=== PATIENT | female | born 1960 | race Caucasian/White ===

== ENCOUNTER → 2016-12-03 10:33 | Outpatient (CLI) | payer MEDICARE, BC ==
[2012-05-13 07:31] VITALS: BMI 38.3
== END | disposition home or self-care (01) ==
LOC: D.CT 11-27 09:00
DX: R91.1 Solitary pulmonary nodule (principal)

== ENCOUNTER → 2017-03-12 08:08 | Outpatient (CLI) | payer MEDICARE, BC ==
[2012-05-13 07:31] VITALS: BMI 38.3
== END | disposition home or self-care (01) ==
LOC: D.CT 08:08
DX: R91.1 Solitary pulmonary nodule (principal)

== ENCOUNTER → 2017-12-19 10:09 | Outpatient (CLI) | payer MEDICARE, BC ==
[2012-05-13 07:31] VITALS: BMI 38.3
== END | disposition home or self-care (01) ==
LOC: D.CT 10:09
DX: R93.8 Abnormal findings on diagnostic imaging of other specified body structures (principal)

== ENCOUNTER 2018-02-26 05:56 | Day surgery (SDC) | payer MEDICARE, BC ==
[~2018-02-26] VITALS: Ht 162.6 cm; Wt 90.7 kg
--- NOTE | ~2018-02-26 | OP ---
PATIENT NAME: VAL MCINTYRE MEDICAL RECORD: [id number] :58 LOCATION:D.OPS ADMISSION DATE: SURGEON: ROMEL WOMACK MD DATE OF OPERATION: 02/26/2018 SURGEON: Romel Womack MD ANESTHESIA: MAC by John Aguilar CRNA PREOPERATIVE DIAGNOSES: Urinary frequency, urethral stricture. PROCEDURE: Cystoscopy and urethral stricture dilation to 30-Mexican. FINDINGS: Urethral stricture, single ureteral orifices bilaterally. No bladder tumors. Diffuse bladder inflammation. ESTIMATED BLOOD LOSS: None. CLINICAL HISTORY: This is a 57-year-old female, who complains of severe urinary frequency with urgency. She also has hesitancy in getting a flow started as well as a very slow urinary flow. Her symptoms are suggestive of a urethral stricture and therefore she comes today to have a cystoscopy and urethral stricture dilation. She has previously had a hysterectomy and she is 3, para 3, AB 0. She is allergic to numerous medications including SULFA, AUGMENTIN, ABILIFY, FENTANYL, NEURONTIN, MORPHINE, OXYCODONE, AND TIZANIDINE. We gave her Ancef commercial drone pilot to the OR. DESCRIPTION OF PROCEDURE: The patient was given IV sedation. She was placed into dorsal lithotomy position and prepped and draped. Cystoscopy was performed with a 21-Mexican cystoscope, which went in with some difficulty due to the urethral stricture. Passage of the scope dilated the urethra to 21-Mexican. Findings in the bladder was outlined above. The bladder was then emptied through the scope sheath and then urethral sounds were used in successively larger sizes to finally dilate the urethra to 30-Mexican. She does have diffuse bladder inflammation and she may have interstitial cystitis. If the urethral stricture dilation does not help her symptoms, then the next step would be intravesical Rimso installation. TRANSINT:[id number] Voice Confirmation ID: [id number] DOCUMENT ID: [id number] ROMEL WOMACK MD at 1322 CC: [id number] DICTATION DATE: 02/26/18 0853 BOTTOM LINER: 02/26/18 1041 [facility] 02/26/18 [place] [address]
[~2018-02-26 05:56] MED LIST: DESERYL100 MG PO; GLUCOPHAGE500 MG PO; GLUCOTROL 5 MG T5 MG PO; K-TAB10 MEQ PO; KLONOPIN0.5 MG PO; PRAVACHOL40 MG PO; PROTONIX40 MG PO; PROZAC20 MG PO; VRAYLAR3 MG PO
[2018-02-26 06:41] VITALS: BP 97/54; Ht 162.6 cm; Wt 90.7 kg
[2018-02-26 06:49] LABS: HEMATOCRIT 31.8 % (36.0-48.0); HEMOGLOBIN 9.6 g/dL (12-16); MCH 24.1 pg (26.0-34.0); MCHC 30.2 g/dL (31.0-37.0); MCV 79.7 fL (80.0-100.0); MEAN PLATELET VOLUME 8.9 fL (7.4-10.4); RBC 3.99 10x6/uL (4.00-5.40); RDW 15.6 % (11.5-14.5); WBC 7.5 10x3/uL (4.8-10.8)
[2018-02-26 07:06] LABS: CALC OSMOLALITY 282 mosm/kg (275-300); CALCIUM 8.4 mg/dL (8.5-10.1); CARBON DIOXIDE 28.6 mmol/L (21.0-32.0); CHLORIDE - SERUM 105 mmol/L (98-107); CREATININE - SERUM 0.8 mg/dL (0.6-1.3); GLUCOSE 112 mg/dL (74-106); POTASSIUM - SERUM 3.9 mmol/L (3.5-5.1); SODIUM 142 mmol/L (136-145); UREA NITROGEN 9 mg/dL (7-18); eGFR NON AFRICAN AMERICAN 78 mL/min (90-120)
== END 2018-02-26 09:35 | disposition home or self-care (01) ==
LOC: D.OPS 05:56 → D.PAN 08:15 → D.OPS 08:15
PROVIDERS: Anesthesiology
DX: R35.0 Frequency of micturition (principal); N35.9 Urethral stricture, unspecified; Z01.812 Encounter for preprocedural laboratory examination; Z88.1 Allergy status to other antibiotic agents; Z88.5 Allergy status to narcotic agent; Z88.2 Allergy status to sulfonamides

== ENCOUNTER → 2018-11-30 15:09 | Outpatient (CLI) | payer MEDICARE, BC ==
[2018-02-26 06:41] VITALS: BMI 34.4
== END | disposition home or self-care (01) ==
LOC: D.HCCARDIO 15:00
DX: I20.9 Angina pectoris, unspecified (principal)

== ENCOUNTER → 2019-04-23 11:09 | Outpatient (CLI) | payer MEDICARE, BC ==
[2018-02-26 06:41] VITALS: BMI 34.4
--- NOTE | 2019-04-27 14:37 | EC ---
PATIENT:VAL MCINTYRE DATE OF SERVICE: 04/23/19 SEX: F MEDICAL RECORD: [id number] DATE OF : 58 [facility] AGE OF PATIENT: 58 ADMISSION DATE: 04/23/19 REFERRING PHYSICIAN: INTERPRETING PHYSICIAN: ANABELLA MCGEE MD ECHOCARDIOGRAM REPORT ECHO CHARGES 4 ECHO COMPLETE Date: 04/23/19 CLINICAL DIAGNOSIS: MR/BAPTISTE/TACHYCARDIA H/O HTN ECHOCARDIOGRAPHIC MEASUREMENTS (adult normal given) AC root (d.<3.7cm) 3.7 cm LV Septum d (<1.2 cm> 0.9 cm Valve Excursion 2.3 cm LV Septum (systole) 1.4 cm Left Atria (s.<4.0cm> 4.7 cm LVPW d(<1.2cm) 1.1 cm RV (d.<2.3cm) 2.6 cm LVPW (sytole) 1.8 cm LV diastole(<5.6CM) 6.0 cm MV E-F(>70mm/sec) cm LV systole 3.5 cm LVOT Diameter 1.9 cm MV exc.(>10mm) cm Est.ejection fraction (50-75%) % DOPPLER: LVIT cm/sec A 128 cm/sec E 100 cm/sec LA cm/sec RVSP 35.0 mmHg LVOT 116 cm/sec AOP1/2T m/s Asc. Ao 183 cm/sec RVOT 71.0 cm/sec RA cm/sec PA 112 cm/sec AV Gradient Peak 13.4 mmHg AV Mean 7.0 mmHg AV Area 1.7 cm MV Gradient Peak 7.7 mmHg MV Mean 3.0 mmHg MV Area cm COMMENTS: OP - HC Machine Inker: 1 BRENDA BRISTOL E Learning Manager: 1 Dr. Mcgee TAPE# PACS Pericardial Effusion N DATE OF SERVICE: FINDINGS: 1. Left ventricular chamber size is mildly dilated. Left ventricular systolic function is preserved at 60%. 2. Left atrium is dilated at 4.7 cm. Right atrium and right ventricular chamber sizes are as well mildly dilated. 3. Valvular structures have normal structure and motion. 4. Doppler interrogation reveals trace mitral regurgitation, trace tricuspid regurgitation, no other valvular insufficiency or stenosis. Pulmonary systolic ECHOCARDIOGRAM REPORT [id number] VAL MCINTYRE pressure is estimated 35 mmHg. 5. No evidence of pericardial effusion or left ventricular thrombus. TRANSINT:[id number] Voice Confirmation ID: [id number] DOCUMENT ID: [id number] ANABELLA MCGEE MD at 1437 CC: [id number] DICTATION DATE: 04/26/19 1125 RECREATION FACILITY ATTENDANT: 04/26/19 1156 DEP CLI 04/23/19 [place] [id number] [place] [id number]
== END | disposition home or self-care (01) ==
LOC: D.HCCARDIO 11:09
PROVIDERS: ATTEND Internal Medicine Interventional Cardiology
DX: I34.0 Nonrheumatic mitral (valve) insufficiency (principal)

== ENCOUNTER → 2020-03-16 17:00 | Outpatient (CLI) | payer MEDICARE, BC ==
[2018-02-26 06:41] VITALS: BMI 34.4
== END | disposition home or self-care (01) ==
LOC: D.LABREF 17:00
PROVIDERS: ATTEND Orthopaedic Surgery
DX: M17.11 Unilateral primary osteoarthritis, right knee (principal)

== ENCOUNTER 2020-03-21 15:16 | Inpatient (IN) | payer MEDICARE, BC ==
[~2020-03-21] VITALS: Ht 165.1 cm; Wt 106.6 kg
[2020-04-18] MEDS ORDERED: ULTRAM50 MG PO (13:11)
[2020-04-18] MEDS ORDERED: BACLOFEN10 MG IV (13:13)
[2020-04-19 12:52] LABS: ANION GAP 8.5 mmol/L (8-16); CALCIUM 8.7 mg/dL (8.5-10.1); CREATININE - SERUM 1.1 mg/dL (0.6-1.3); POTASSIUM - SERUM 4.5 mmol/L (3.5-5.1)
[2020-04-19 13:00] LABS: BASOPHILS 0.2 % (0-2); EOSINOPHILS 5.7 % (0-7); HEMATOCRIT 40.1 % (36.0-48.0); HEMOGLOBIN 12.9 g/dL (12-16); IMMATURE GRANULOCYTES 0.6 % (0-5); LYMPHOCYTES 28.2 % (15-50); MCH 30.1 pg (26.0-34.0); MCHC 32.2 g/dL (31.0-37.0); MCV 93.7 fL (80.0-100.0); MEAN PLATELET VOLUME 9.1 fL (7.4-10.4); MONOCYTES 5.2 % (2-11); NEUTROPHILS 60.1 % (40-80); PLATELET COUNT 249 10x3/uL (130-400); RBC 4.28 10x6/uL (4.00-5.40); RDW 13.7 % (11.5-14.5); WBC 10.3 10x3/uL (4.8-10.8)
[2020-04-19 13:02] LABS: APTT 27.1 SECONDS (22.8-39.4); INR 0.95 (0.85-1.17); PROTIME 12.6 SECONDS (11.6-15.0)
[2020-04-19 13:22] LABS: BILIRUBIN NEGATIVE (NEGATIVE); GLUCOSE NEGATIVE (NEGATIVE); KETONE NEGATIVE (NEGATIVE); NITRITE NEGATIVE (NEGATIVE); UROBILINOGEN NORMAL (NORMAL)
[2020-04-19 13:24] LABS: BACTERIA MODERATE /hpf (NEGATIVE); RED CELLS - URINE 0-5 /hpf (0-5)
[2020-04-25] VITALS (9 sets, daily range): BP systolic 91–120; BP diastolic 42–62; BMI 39.1
[2020-04-25] MEDS ORDERED: CIPRO500 MG PO (09:03)
--- NOTE | 2020-04-25 14:00 | NUR ---
RECEIVED TO ROOM 1209 VIA BED FROM PACU. ROUSES TO VERBAL STIMULATION. DRESSING TO RIGHT KNEE DRY AND INTACT. DENIES PAIN.
--- NOTE | 2020-04-25 15:19 | NUR ---
RESTING QUIETLY WITH EYES CLOSED. ROUSES EASILY TO VERBAL STIMULATION. VSS.
--- NOTE | 2020-04-25 16:04 | NUR ---
REQUESTED PAIN MEDICINE. BP IS 98/58. WILL GIVE TORADOL AND MONITOR.
--- NOTE | 2020-04-25 17:48 | NUR ---
ATE MOST OF SUPPER TRAY. REPOSITIONED IN BED FOR COMFORT. REFUSED OFFER TO VOID AT THIS TIME. PLACED ON CPM. REPORTS PAIN IMPROVED WITH USE OF TORADOL. WILL CONTINUE TO MONITOR.
--- NOTE | 2020-04-25 19:43 | NUR ---
PT ASSISTED WITH VOIDING USING BEDPAN. PT STATES "I HAVE BEEN ON CIPRO FOR THE LAST 4 DAYS BECAUSE I HAVE A URINARY INFECTION". ALL FALL PRECATIONS IN PLACE. BED IS IN THE LOWEST POSITION. CALL LIGHT AND BEDSIDE TABLE ARE WITHIN REACH. SIDE RAILS X 2. INCENTIVE SPRIOMETER AT BEDSIDE. INCENTIVE SPIROMETER ENCOURAGED. CPM IS ON AND WORKING. PT DENIES FURTHER NEEDS. WILL NOTIFY SHIFT NURSE OF PT REPORT OF UTI.
--- NOTE | 2020-04-25 20:58 | NUR ---
CPM MACHINE REMOVED. DRESSING TO RIGHT KNEE IS CDI. ALL FALL PRECAUTIONS IN PLACE. INCENTIVE SPIROMETER ENCOURAGED. BED IS IN THE LOWEST POSITION. CALL LIGHT AND BEDSIDE TABLE ARE WITHIN REACH. SIDE RAILS X 2. PT DENIES FURTHER NEEDS. WILL CONT TO MONITOR.
[2020-04-26] VITALS (7 sets, daily range): BP systolic 80–122; BP diastolic 43–59; Ht 165.1 cm; Wt 106.6 kg
--- NOTE | 2020-04-26 02:59 | NUR ---
AWAKE REQUESTIN CPM TO BE PUT ON, STATES I THINK IT WILL MAKE MY KNEE FEEL BETTER, FEELS STIFF RIGHT NOW, CPM PLACED AT THIS TIME
--- NOTE | 2020-04-26 06:36 | OP ---
PATIENT NAME: VAL CRUZ MEDICAL RECORD: [id number] :58 LOCATION:D. D.1209 ADMISSION DATE:04/25/20 SURGEON: SAMIR TEMPLETON DO DATE OF OPERATION: 04/25/2020 PROCEDURE PERFORMED: Right total knee arthroplasty. PREOPERATIVE DIAGNOSIS: Right knee osteoarthritis with valgus deformity. POSTOPERATIVE DIAGNOSIS: Right knee osteoarthritis with valgus deformity. INDICATIONS: Ms. Cruz is a 59-year-old female who has had right knee pain for quite some time with some instability. She has dealt with through nonoperative measures including injections, bracing, and she is to no avail. She is tired dealing with the pain. She wants something done surgically. She is aware of the risks and benefits of the procedure including infection, bleeding, damage to nerves and vessels, need for further surgery, continued pain, arthrofibrosis, failure of implants, and fracture. Also blood clots, and even and she signed the consent. SURGEON: Samir Templeton DO DESCRIPTION OF PROCEDURE: The patient was taken to the operative suite, laid in supine position, given general anesthetic and 2 grams Ancef and 80 mg gentamicin and gram of TXA preoperatively. She was sedated and LMA was placed. The right lower extremity was then prepped and draped in sterile fashion. A timeout was performed; everyone was in agreement with the correct side, site, patient and procedure. I then marked out the incision covered in Ioban and then took him with scalpel and careful dissection through the skin down to the capsule, did a medial parapatellar approach through the capsule to the knee with a fresh 10 blade scalpel. All bleeding was coagulated with the Aquamantys throughout the procedure. We then everted the patella and removed part of the fat pad and milled down the patella. The femur was then exposed and entered the intramedullary canal and cut the distal femur. Proximal tibia was then cut again once and then we cut it twice and even a third time after trialing. Once the cut was appropriate, the femur was measured and measured to be 77.0, 4-in-1 cutting block was then used. We then put on the PS knee guide rather a trial and cut out the block for the PS. We then drilled the lug holes. Fat was then removed, put on the trial, could not quite fit the tibial trial and so we had to recut the tibia. Once the tibia was recut, we trialled and it was fit well and was in good stability medial and lateral, marked the rotation of the tibia. We then drilled the holes for the patella. This was all removed, the tibia was exposed and sized the tray to be a 75;75 was reamed and punched and then extra holes put in the tibia. Cement was then mixed. Cement was placed in the tibial and implant was impacted into place. Femur was impacted and excess cement had been removed and the tibia, 10 poly was put in between and brought to extension. The patella was then cleaned out the holes had been previously drilled with a curette. We attempted to put the patella and we can widen the hole a little and this was done and then the cement was put in the holes and on the tibial implant and squeezed and held into place while the cement dried, 10% povidone-iodine with 500 mL of normal saline was then put in the knee. We then irrigated after that set for 3 minutes, we irrigated that out with overly normal saline. Then, trial a 12, 12 poly fit very well and then we decided to with 12. We irrigated the knee one more time. 12 poly was put in and locked into place. We then placed Gato power and vancomycin-tobramycin powder in the knee and then closed OPERATIVE REPORT [id number] VAL CRUZ the capsule with #1 pop off with Vicryl in a iwpdwe-[id number] fashion. This was done by myself and Soto Valdivia, certified surgical instruments inspector. We then closed the skin with 2-0 Vicryl interrupted fashion. ZipLine was placed on the knee. Adaptic, 4 x 4s, ABD, Webril, Hussein wrap was then placed on the knee. She was awakened and taken to recovery in stable condition. ESTIMATED BLOOD LOSS: 200 mL. COMPLICATIONS: None. TRANSINT:[id number] Voice Confirmation ID: [id number] DOCUMENT ID: [id number] SAMIR TEMPLETON DO at 0636 CC: [id number] DICTATION DATE: 04/25/20 1226 SHELLFISH GROWER: 04/26/20 0012 [facility] [place] [address] [place] [address]
--- NOTE | 2020-04-26 07:18 | NUR ---
PT RESTING QUIETLY IN BED. RESP EVEN AND UNLABORED. PT REPORTS PAIN 2/10 AT THIS TIME. IV TO LEFT HAND WITH 1/2 NS @ 50ML/HR INFUSING VIA PUMP. SITE WITHOUT REDNESS OR EDEMA. CPM TO LEFT LOWER EXTREMITY, ROCHELLE WELL. DRESSING INTACT TO RIGHT KNEE, SMALL (DIMESIZE) SPOT OF BLOODY DRAINAGE NOTED AT THIS TIME. PT DENIES FURTHER NEEDS AT THIS TIME. CL WITHIN REACH. ENCOURAGED TO CALL WITH NEEDS. CONTINUE POC
--- NOTE | 2020-04-26 09:00 | NUR ---
PT AMBULATING IN HALLWAY WITH PT. ROCHELLE VAUGHN
[2020-04-26 09:22] LABS: BASOPHILS 0.1 % (0-2); EOSINOPHILS 1.7 % (0-7); HEMATOCRIT 32.1 % (36.0-48.0); HEMOGLOBIN 9.9 g/dL (12-16); IMMATURE GRANULOCYTES 0.5 % (0-5); LYMPHOCYTES 23.6 % (15-50); MCH 29.6 pg (26.0-34.0); MCHC 30.8 g/dL (31.0-37.0); MCV 95.8 fL (80.0-100.0); MEAN PLATELET VOLUME 9.5 fL (7.4-10.4); MONOCYTES 10.4 % (2-11); NEUTROPHILS 63.7 % (40-80); RBC 3.35 10x6/uL (4.00-5.40); RDW 14.1 % (11.5-14.5); WBC 10.5 10x3/uL (4.8-10.8)
[2020-04-26 09:37] LABS: ANION GAP 6.9 mmol/L (8-16); CALCIUM 7.8 mg/dL (8.5-10.1); CARBON DIOXIDE 33.5 mmol/L (21.0-32.0); CREATININE - SERUM 1.1 mg/dL (0.6-1.3); MAGNESIUM - SERUM 1.7 mg/dL (1.8-2.4); PHOSPHOROUS 3.6 mg/dL (2.5-4.9); PLATELET COUNT 193 10x3/uL (130-400); POTASSIUM - SERUM 4.4 mmol/L (3.5-5.1)
--- NOTE | 2020-04-26 11:06 | NUR ---
PT SITTING UP IN CHAIR AT BEDSIDE. PT REPETITIOUSLY PUSHES CALL LIGHT AND WHEN STAFF ENTERS ROOM STATES, "I DIDN'T PUSH THE BUTTON." NO ACUTE DISTRESS NOTED. PT DOES REPEAT SELF WHEN TALKING WITH HER. DENIES PAIN AT THIS TIME. CL WITHIN REACH. ENCOURAGED TO CALL WITH NEEDS.
--- NOTE | 2020-04-26 13:03 | NUR ---
PT AMBULATING IN HALLWAY WITH PT. PT ROCHELLE VAUGHN
--- NOTE | 2020-04-26 15:40 | MORECARE ---
CASE MANAGEMENT DISCHARGE SUMMARY PATIENT: MARY CRUZ UNIT: [id number] ADM DATE: 04/25/20 AGE: 59 : 58 SEX: F ROOM/BED: D.1209 AUTHOR: SAMY DE LOS SANTOS PHYSICIAN: REFERRING PHYSICIAN: DEB TEMPLETON DO DATE OF SERVICE: 04/26/20 Discharge Plan Patient Name: MARY CRUZ [facility] : 1960 Planned Disposition: Home Anticipated Discharge Date: 04/28/20 Discharge Date: Expected LOS: 3 Initial Reviewer: [email or web address] Initial Review Date: 04/25/2020 Generated: 04/26/20 4:39 pm Coverage Notice Reviewer: [email or web address] Esther Zuñiga Notice Issued Date-Time: 04/26/2020 15:35 Notice Type: Patient Choice Letter Notice Delivered To: Patient Relationship to Patient: Self Saddle Mechanic Name: Mary Cruz Delivery Method: HAND - Hand Delivered Afshan Days: Prior Verbal Notification: Recipient Understood Notice: Yes Recipient Signature: Yes Med Rec Note Co-signed by Attending: Coverage Notice Comment: Patient choice signed/given to patient, for [facility]. Original to patient copy to chart. Patient Name: MARY CRUZ Page [phone] at 1540 All edits/amendments must be made on the electronic document DICTATION DATE: 04/26/209 ROOF BOLTING COAL MINER: CHRISTIANO 04/26/20 1539 RPT#: [id number] DC DATE: STATUS: ADM IN [facility] [address] [place] [address] END OF REPORT
--- NOTE | 2020-04-26 16:59 | MORECARE ---
CASE MANAGEMENT DISCHARGE SUMMARY PATIENT: MARY CRUZ UNIT: [id number] ADM DATE: 04/25/20 AGE: 59 : 58 SEX: F ROOM/BED: D.1209 AUTHOR: MAGALI,DOC PHYSICIAN: REFERRING PHYSICIAN: DEB TEMPLETON DO DATE OF SERVICE: 04/26/20 Discharge Plan Patient Name: MARY CRUZ Facility: [facility]:[place] : 1960 Planned Disposition: Home Anticipated Discharge Date: 04/28/20 Discharge Date: Expected LOS: 3 Initial Reviewer: [email or web address] Initial Review Date: 04/25/2020 Generated: 04/26/20 5:59 pm Comments DCP- Discharge Planning Updated by [email or web address]: Avelina Zuñiga on 04/26/20 3:[address] CM met with patient to discuss initial discharge planning. Patient is in agreement to proceed with the assessment. Patient reports that she lives at home alone, independently. Patient is alert/oriented, drowsy. Stairs/steps: 2 small steps. PCP: Dr. Abreu. [facility]. Patient states she has been able to obtain all of her prescribed medications. HHS: Patient's choice is [facility] for PT, Nursing, aide. DME: Bi-pap from [facility], Walker w/seat. Patient gives permission to speak with family members. Emergency contact: Ana Ag (dtr) [phone]. Patient is Independent with all ADL's, medication management HEALTH TECHNICIAN HEARING. CM discussed the availability of HH, Rehab, SNF, OP Therapy, DME services. Patient denies the need for additional services at this time and feels safe returning to previous environment. refuses to consider Rehab. Patient denies hospitalization within the past 30 days. Patient denies the use of community resources HEALTH TECHNICIAN HEARING. Transportation at time of discharge: Zita, (friend) [phone]. Coverage Notice Reviewer: [id number] Esther Zuñiga Notice Issued Date-Time: 04/26/2020 15:35 Notice Type: Patient Choice Letter Notice Delivered To: Patient Relationship to Patient: Self Oriental Rug Stretcher Name: Mary Cruz Delivery Method: HAND - Hand Delivered Afshan Days: Prior Verbal Notification: Recipient Understood Notice: Yes Recipient Signature: Yes Med Rec Note Co-signed by Attending: Coverage Notice Comment: Patient choice signed/given to patient, for [facility]. Original to patient copy to chart. Last DP export: 04/26/20 2:40 pm Patient Name: MARY CRUZ Page [phone] at 1659 All edits/amendments must be made on the electronic document DICTATION DATE: 04/26/201658 VAMPER: CHRISTIANO 04/26/201658 RPT#: [id number] DC DATE: STATUS: ADM IN [facility] [address] [place] [address] END OF REPORT
--- NOTE | 2020-04-26 17:11 | MORECARE ---
CASE MANAGEMENT DISCHARGE SUMMARY PATIENT: MARY CRUZ UNIT: [id number] ADM DATE: 04/25/20 AGE: 59 : 58 SEX: F ROOM/BED: D.1209 AUTHOR: MAGALI,DOC PHYSICIAN: REFERRING PHYSICIAN: DEB TEMPLETON DO DATE OF SERVICE: 04/26/20 Discharge Plan Patient Name: MARY CRUZ Facility: [facility]:[place] : 1960 Planned Disposition: Home Anticipated Discharge Date: 04/28/20 Discharge Date: Expected LOS: 3 Initial Reviewer: [id number] Initial Review Date: 04/25/2020 Generated: 04/26/20 6:10 pm Comments DCP- Discharge Planning Updated by [id number]: Avelina Zuñiga on 04/26/20 4:[address] DC Plan: Home with [facility] ([phone]), PT, Nursing, aide. DME Kinex: 2 Wheeled walker, BSC, shower chair, CPM, Ice machine ([phone]). CM met with patient to discuss initial discharge planning. Patient is in agreement to proceed with the assessment. Patient reports that she lives at home alone, independently. Patient is alert/oriented, drowsy. Stairs/steps: 2 small steps. PCP: Dr. Abreu. [facility]. Patient states she has been able to obtain all of her prescribed medications. HHS: Patient's choice is [facility] for PT, Nursing, aide. DME: Bi-pap from [facility], Walker w/seat, Pain Med Pump. Patient gives permission to speak with family members. Emergency contact: Ana Ag (dtr) [phone]. Patient is Independent with all ADL's, medication management WOOD STOCK BLANK HANDLER. CM discussed the availability of HH, Rehab, SNF, OP Therapy, DME services. Patient refuses to consider Rehab. Patient feels safe returning to previous environment. Patient denies hospitalization within the past 30 days. Patient denies the use of community resources WOOD STOCK BLANK HANDLER. Transportation at time of discharge: Zita, (friend) [phone]. Coverage Notice Reviewer: [id number] - Avelina Zara Notice Issued Date-Time: 04/26/2020 15:35 Notice Type: Patient Choice Letter Notice Delivered To: Patient Relationship to Patient: Self Manager Care Name: Mary Cruz Delivery Method: HAND - Hand Delivered Afshan Days: Prior Verbal Notification: Recipient Understood Notice: Yes Recipient Signature: Yes Med Rec Note Co-signed by Attending: Coverage Notice Comment: Patient choice signed/given to patient, for [facility]. Original to patient copy to chart. Last DP export: 04/26/20 3:59 pm Patient Name: MARY CRUZ Page [phone] at 1711 All edits/amendments must be made on the electronic document DICTATION DATE: 04/26/201709 TRANS ROUTER: CHRISTIANO 04/26/201709 RPT#: [id number] DC DATE: STATUS: ADM IN [facility] [address] [place] [address] END OF REPORT
--- NOTE | 2020-04-26 17:26 | MORECARE ---
CASE MANAGEMENT DISCHARGE SUMMARY PATIENT: MARY CRUZ UNIT: [id number] ADM DATE: 04/25/20 AGE: 59 : 58 SEX: F ROOM/BED: D.1209 AUTHOR: MAGALI,DOC PHYSICIAN: REFERRING PHYSICIAN: DEB TEMPLETON DO DATE OF SERVICE: 04/26/20 Discharge Plan Patient Name: MARY CRUZ Facility[facility]:[place] : 1960 Planned Disposition: Home Anticipated Discharge Date: 04/28/20 Discharge Date: Expected LOS: 3 Initial Reviewer: [id number] Initial Review Date: 04/25/2020 Generated: 04/26/20 6:26 pm Comments DCP- Discharge Planning Updated by [email or web address]: Avelina Zuñiga on 04/26/20 4:[address] DC Plan: Home with [facility] ([phone]), PT, Nursing, aide. DME [employer]: 2 Wheeled walker, BSC, shower chair, CPM, Ice machine ([phone]). CM met with patient to discuss initial discharge planning. Patient is in agreement to proceed with the assessment. Patient reports that she lives at home alone, independently. Patient is alert/oriented, drowsy. Stairs/steps: 2 small steps. PCP: Dr. Abreu. [facility]. Patient states she has been able to obtain all of her prescribed medications. HHS: Patient's choice is [facility] for PT, Nursing, aide. DME: Bi-pap from [facility], Walker w/seat, Pain Med Pump. Patient gives permission to speak with family members. Emergency contact: Ana Ag (dtr) [phone]. Patient is Independent with all ADL's, medication management METEOROLOGIST LIAISON. CM discussed the availability of HH, Rehab, SNF, OP Therapy, DME services. Patient refuses to consider Rehab. Patient feels safe returning to previous environment. Patient denies hospitalization within the past 30 days. Patient denies the use of community resources METEOROLOGIST LIAISON. Transportation at time of discharge: Zita, (friend) [phone]. Coverage Notice Reviewer: [id number] - Avelina Zara Notice Issued Date-Time: 04/26/2020 15:35 Notice Type: Patient Choice Letter Notice Delivered To: Patient Relationship to Patient: Self Court Manager Name: Mary Cruz Delivery Method: HAND - Hand Delivered Afshan Days: Prior Verbal Notification: Recipient Understood Notice: Yes Recipient Signature: Yes Med Rec Note Co-signed by Attending: Coverage Notice Comment: Patient choice signed/given to patient, for [facility]. Original to patient copy to chart. Last DP export: 04/26/20 4:11 pm Patient Name: MARY CRUZ Page [phone] at 1726 All edits/amendments must be made on the electronic document DICTATION DATE: 04/26/201725 DSP ENGINEER: CHRISTIANO 04/26/201725 RPT#: [id number] DC DATE: STATUS: ADM IN [facility] [address] [place] [address] END OF REPORT
--- NOTE | 2020-04-26 19:35 | NUR ---
LYING IN BED TALKING ON THE PHONE. ALERT AND ORIENTED X4. RESP SHALLOW NONLABORED. ENCOURAGED USE OF I.S. AT THIS TIME. PT STATES SHE HAS BEEN USING IT. ENCOURAGED TO COUGH AND DEEP BREATHE. [place] WRAP NOTED TO RT KNEE IS C/D/I. CPM ON AT THIS TIME. SCD NOTED TO LLE. PLEXI NOTED TO RT FOOT. 1+ EDEMA NOTED TO BLE. 1/2 NS @ 50 MLHR INFUSING IN LT HAND WITHOUT DIFF. RATES PAIN IN RT KNEE 8. HAS BEEN HYPOTENSIVE. SR ELEVATED X2. CL IN RECH. BED ALARM IN USE FOR PT SAFETY.
[2020-04-26 19:36] LABS: BILIRUBIN NEGATIVE (NEGATIVE); GLUCOSE NEGATIVE (NEGATIVE); KETONE NEGATIVE (NEGATIVE); NITRITE NEGATIVE (NEGATIVE); SPECIFIC GRAVITY 1.025 (1.005-1.020); UROBILINOGEN NORMAL (NORMAL)
--- NOTE | 2020-04-26 21:40 | NUR ---
TAKEN OFF OF CPM AT THIS TIME. ASSISTED ONTO BEDPAN TO VOID. HAS GREAT DIFF EVEN TURNING IN BED.
--- NOTE | 2020-04-26 22:26 | NUR ---
BED BATH GIVEN AT THIS TIME AND LINENS CHANGED. C/O PAIN IN RT KNEE RATING 8. B/P RECHECKED AND WAS 107/59. HR 76. MEDICATED WITH TORADOL FOR PAIN. CL IN REACH. BED ALARM ON FOR PT SAFETY. ICE PACK APPLIED TO RT KNEE.
--- NOTE | 2020-04-27 00:14 | NUR ---
ASSISTED ONTO BEPAN PER STAFF X2. REPOSITIONED IN BED. V/S TAKEN AT THIS TIME. SR ELEVATED X2. CL IN REACH. BED ALARM ON FOR PT SAFETY.
[2020-04-27 00:59] VITALS: BP 99/47
--- NOTE | 2020-04-27 03:41 | NUR ---
SAO2 88%. HAS ELEVATED TEMP. RT IN ROOM AND PLACED PT ON O2 @ 2L/NC. MADE PT USE I.S. AGAIN. ASKING FOR PAIN MEDS. B/P IS TOO LOW FOR NARCOTIC. WILL MEDICATE WITH TYLENOL FOR ELEVATED TEMP AND WILL GIVE TORADOL WHEN TIME. PT VERBALIZED UNDERSTANDING.
[2020-04-27 03:58] VITALS: BP 93/52
--- NOTE | 2020-04-27 04:20 | NUR ---
MEDICATED WITH TORADOL FOR C/O PAIN IN BACK RATING 7. CL IN REACH. DROWSY.
--- NOTE | 2020-04-27 05:20 | NUR ---
ASSISTED ONTO BEDPAN PER STAFF X2. PT HAS DIFF TURNING. PLACED ON CPM AT THIS TIME. CL IN REACH.
--- NOTE | 2020-04-27 07:45 | NUR ---
ASSISTED PT WITH TOILETING AND DESTINI CARE. RESP EVEN AND UNLABORED. O2@2L NC IN PLACE. REPORTS PAIN 4/10 AT THIS TIME. IV TO LEFT HAND WITH 1/2 NS @ 50ML/HR INFUSING VIA PUMP. SITE WITHOUT REDNESS OR EDEMA. DRESSING TO RIGHT LOWER EXTREMITY C/D/I. CPM IN PLACE. PT REQUEST TO HAVE CPM REMOVED. EDUCATED PT REGARDING USE OF CPM AND IT BEING DUE TO COME OFF @ 0830. PT VOICES UNDERSTANDING, THEN REQUEST AGAIN TO HAVE IT TAKEN OFF. DISCUSSED IMPORTANCE OF CPM, PT VOICES UNDERSTANDING AND AGREES TO LEAVE IN PLACE FOR TIME BEING. DENIES FURTHER NEEDS AT THIS TIME. CL WITHIN REACH. ENCOURAGED TO CALL WITH NEEDS. CONTINUE POC
[2020-04-27 07:47] LABS: BASOPHILS 0.2 % (0-2); EOSINOPHILS 4.4 % (0-7); HEMATOCRIT 30.6 % (36.0-48.0); HEMOGLOBIN 9.5 g/dL (12-16); IMMATURE GRANULOCYTES 0.4 % (0-5); LYMPHOCYTES 29.9 % (15-50); MCH 29.5 pg (26.0-34.0); MONOCYTES 8.7 % (2-11); NEUTROPHILS 56.4 % (40-80); PLATELET COUNT 174 10x3/uL (130-400); RBC 3.22 10x6/uL (4.00-5.40); RDW 14.1 % (11.5-14.5); WBC 9.8 10x3/uL (4.8-10.8)
[2020-04-27 07:59] LABS: ANION GAP 7.9 mmol/L (8-16); CALCIUM 7.8 mg/dL (8.5-10.1); CARBON DIOXIDE 30.3 mmol/L (21.0-32.0); MAGNESIUM - SERUM 1.7 mg/dL (1.8-2.4); PHOSPHOROUS 3.5 mg/dL (2.5-4.9); POTASSIUM - SERUM 4.2 mmol/L (3.5-5.1)
[2020-04-27 08:00] VITALS: BP 98/49
--- NOTE | 2020-04-27 08:45 | NUR ---
PT RESTING IN BED. NO ACUTE DISTRESS NOTED. PT ON PHONE. DENIES FURTHER NEEDS AT THIS TIME. CL WITHIN REACH. ENCORUAGED TO CALL WITH NEEDS.
--- NOTE | 2020-04-27 10:20 | NUR ---
PT AMBULATING IN HALLWAY WITH PHYSICAL THERAPY. PT COMPLAINS OF NAUSEA AT THIS TIME. PT ASSIST PT BACK TO ROOM. WILL REFER TO [facility] FOR NAUSEA MEDICATIONS
--- NOTE | 2020-04-27 11:10 | NUR ---
PT SITTING UP IN CHAIR AT BEDSIDE. RESP EVEN AND UNLABORED. PT IS DROWSY, BUT AWAKENS STAFF ENTERS ROOM. REPORTS PAIN 5/10 AT THIS TIME. DENIES FURTHER NEEDS AT THIS TIME. CL WITHIN REACH. ENCORUAGED TO CALL WITH NEEDS.
[2020-04-27 12:00] VITALS: BP 124/67
--- NOTE | 2020-04-27 12:00 | NUR ---
PT REMAINS UP IN CHAIR AT BEDSIDE. REPORTS PAIN 4/10 AT THIS TIME. RESP EVEN AND UNLABORED. DENIES FURTHER NEEDS AT THIS TIME. CL WITHIN REACH. ENCOURAGED TO CALL WITH NEEDS.
--- NOTE | 2020-04-27 13:00 | NUR ---
PT REMAINS UP IN CHAIR AT BEDSIDE. RESP EVEN AND UNLABORED. PT REPORTS PAIN 6/10 AT THIS TIME FOLLOWING PAIN MEDICATION BEING ADMINISTERED. DENIES FURTHER NEEDS AT THIS TIME. CL WITHIN REACH. ENCORUAGED TO CALL WITH NEEDS.
--- NOTE | 2020-04-27 13:43 | NUR ---
PT AMBULATING IN HALLWAY WITH PHYSICAL THERAPY. PT ROCHELLE WELL AT THIS TIME.
--- NOTE | 2020-04-27 13:50 | NUR ---
ASSISTED PT WITH CHG BATH. PT ROCHELLE WELL. BED LINENS AND GOWN CHANGED.
--- NOTE | 2020-04-27 14:45 | NUR ---
PT SITTING UP IN CHAIR AT BEDSIDE. RESP EVEN AND UNLABORED. PT REPORTS PAIN 6/10 AT THIS TIME. DENIES FURTHER NEEDS AT THIS TIME. CL WITHIN REACH. ENCOURAGED TO CALL WITH NEEDS.
--- NOTE | 2020-04-27 15:35 | NUR ---
PT RESTING QUIETLY IN BED. RESP EVEN AND UNLABORED. REPORTS PAIN 5/10 AT THIS TIME. DENIES FURTHER NEEDS AT THIS TIME. CL WITHIN REACH. ENCOURAGED TO CALL WITH NEEDS.
[2020-04-27 16:00] VITALS: BP 133/63
--- NOTE | 2020-04-27 17:04 | NUR ---
PT SITTING UP IN BED EATING DINNER. REPORTS PAIN 6/10 AT THIS TIME. OFFERED ASSISTANCE WITH DINNER TRAY. PT VOICES SHE IS WAITING UNTIL LATER TO EAT. PT DENIES FURTHER NEEDS AT THIS TIME. CL WITHIN REACH. ENCOURAGED TO CALL WITH NEEDS.
[2020-04-27] MEDS ORDERED: ELIQUIS2.5 MG PO (17:14)
[2020-04-27] MEDS ORDERED: VISTARIL50 MG PO (17:14)
[2020-04-27] MEDS ORDERED: CIPRO500 MG PO (17:14)
[2020-04-27] MEDS ORDERED: ULTRAM50 MG PO (17:15)
--- NOTE | 2020-04-27 18:58 | MORECARE ---
CASE MANAGEMENT DISCHARGE SUMMARY PATIENT: MARY CRUZ UNIT: [id number] ADM DATE: 04/25/20 AGE: 59 : 58 SEX: F ROOM/BED: D.1209 AUTHOR: MAGALI,DOC PHYSICIAN: REFERRING PHYSICIAN: DEB TEMPLETON DO DATE OF SERVICE: 04/27/20 Discharge Plan Patient Name: MARY CRUZ Facility: [facility]:[employer] : 1960 Planned Disposition: Home Anticipated Discharge Date: 04/28/20 Discharge Date: 04/27/2020 Expected LOS: 3 Initial Reviewer: [email or web address] Initial Review Date: 04/25/2020 Generated: 04/27/20 7:57 pm Comments DCP- Discharge Planning Updated by [id number]: Le Jurado on 04/27/20 5:[address] CM called and faxed records to [facility] [phone] they will admit patient on Friday. CM spoke with John with [facility] [phone] and he stated for the patient call when discharged and they will deliver equipment to her home. CM will continue to follow and assist as needed with discharge planning / needs. DCP- Discharge Planning Updated by [id number]: Avelina Zuñiga on 04/26/20 4:[address] DC Plan: Home with Care [facility] ([phone]), PT, Nursing, aide. DME Kinex: 2 Wheeled walker, BSC, shower chair, CPM, Ice machine ([phone]). CM met with patient to discuss initial discharge planning. Patient is in agreement to proceed with the assessment. Patient reports that she lives at home alone, independently. Patient is alert/oriented, drowsy. Stairs/steps: 2 small steps. PCP: Dr. Abreu. [facility]. Patient states she has been able to obtain all of her prescribed medications. HHS: Patient's choice is [facility] for PT, Nursing, aide. DME: Bi-pap from [facility], Walker w/seat, Pain Med Pump. Patient gives permission to speak with family members. Emergency contact: Aan Ag (dtr) [phone]. 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 CM discussed the availability of HH, Rehab, SNF, OP Therapy, DME services. Patient refuses to consider Rehab. Patient feels safe returning to previous environment. Patient denies hospitalization within the past 30 days. 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 Transportation at time of discharge: Zita, (friend) [phone]. Coverage Notice Reviewer: [id number] Esther Zuñiga Notice Issued Date-Time: 04/26/2020 15:35 Notice Type: Patient Choice Letter Notice Delivered To: Patient Relationship to Patient: Self Bulb Brander Name: Mary Cruz Delivery Method: HAND - Hand Delivered Afshan Days: Prior Verbal Notification: Recipient Understood Notice: Yes Recipient Signature: Yes Med Rec Note Co-signed by Attending: Coverage Notice Comment: Patient choice signed/given to patient, for [facility]. Original to patient copy to chart. Last DP export: 04/26/20 4:26 pm Patient Name: MARY CRUZ Page [phone] at 1858 All edits/amendments must be made on the electronic document DICTATION DATE: 04/27/201856 ENAMEL DRIER: CHRISTIANO 04/27/201856 RPT#: [id number] DC DATE:04/27/20 STATUS: DIS IN [facility] [address] [place] [address] END OF REPORT
--- NOTE | 2020-04-28 09:03 | MORECARE ---
CASE MANAGEMENT DISCHARGE SUMMARY PATIENT: MARY CRUZ UNIT: [id number] ADM DATE: 04/25/20 AGE: 59 : 58 SEX: F ROOM/BED: D.1209 AUTHOR: MAGALI,DOC PHYSICIAN: REFERRING PHYSICIAN: DEB TEMPLETON DO DATE OF SERVICE: 04/28/20 Discharge Plan Patient Name: MARY CRUZ Facility: [facility]:[place] : 1960 Planned Disposition: Home Anticipated Discharge Date: 04/28/20 Discharge Date: 04/27/2020 Expected LOS: 3 Initial Reviewer: [email or web address] Initial Review Date: 04/25/2020 Generated: 04/28/20 10:03 am Comments DCP- Discharge Planning Updated by [email or web address]: Le Jurado on 04/27/20 5:[address] CM called and faxed records to [facility] [phone] they will admit patient on Friday. CM spoke with John with [facility] [phone] and he stated for the patient call when discharged and they will deliver equipment to her home. CM will continue to follow and assist as needed with discharge planning / needs. DCP- Discharge Planning Updated by [id number]: Avelina Zuñiga on 04/26/20 4:[address] DC Plan: Home with [facility] ([phone]), PT, Nursing, aide. DME Kinex: 2 Wheeled walker, BSC, shower chair, CPM, Ice machine ([phone]). CM met with patient to discuss initial discharge planning. Patient is in agreement to proceed with the assessment. Patient reports that she lives at home alone, independently. Patient is alert/oriented, drowsy. Stairs/steps: 2 small steps. PCP: Dr. Abreu. [facility]acy[facility]. Patient states she has been able to obtain all of her prescribed medications. HHS: Patient's choice is [facility] for PT, Nursing, aide. DME: Bi-pap from [facility], Walker w/seat, Pain Med Pump. Patient gives permission to speak with family members. Emergency contact: Ana Ag (dtr) [phone]. 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 CM discussed the availability of HH, Rehab, SNF, OP Therapy, DME services. Patient refuses to consider Rehab. Patient feels safe returning to previous environment. Patient denies hospitalization within the past 30 days. 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 Transportation at time of discharge: Zita, (friend) [phone]. Coverage Notice Reviewer: [id number] Esther Zuñiga Notice Issued Date-Time: 04/26/2020 15:35 Notice Type: Patient Choice Letter Notice Delivered To: Patient Relationship to Patient: Self Manager Pacu Name: Mary Cruz Delivery Method: HAND - Hand Delivered Afshan Days: Prior Verbal Notification: Recipient Understood Notice: Yes Recipient Signature: Yes Med Rec Note Co-signed by Attending: Coverage Notice Comment: Patient choice signed/given to patient, for [facility]. Original to patient copy to chart. Last DP export: 04/27/20 5:58 pm Patient Name: MARY CRUZ Page [phone] at 0903 All edits/amendments must be made on the electronic document DICTATION DATE: 04/28/20902 SUPPLIER QUALITY: CHRISTIANO 04/28/20902 RPT#: [id number] DC DATE:04/27/20 STATUS: DIS IN [place] [address] [place] [address] END OF REPORT
--- NOTE | 2020-04-28 09:26 | MORECARE ---
CASE MANAGEMENT DISCHARGE SUMMARY PATIENT: MARY CRUZ UNIT: [id number] ADM DATE: 04/25/20 AGE: 59 : 58 SEX: F ROOM/BED: D.1209 AUTHOR: MAGALI,DOC PHYSICIAN: REFERRING PHYSICIAN: DEB TEMPLETON DO DATE OF SERVICE: 04/28/20 Discharge Plan Patient Name: MARY CRUZ Facility: [facility]:[place] : 1960 Planned Disposition: Home Anticipated Discharge Date: 04/28/20 Discharge Date: 04/27/2020 Expected LOS: 3 Initial Reviewer: [email or web address] Initial Review Date: 04/25/2020 Generated: 04/28/20 10:26 am Comments DCP- Discharge Planning Updated by [email or web address]: Avelina Zuñiga on 04/28/20 8:[address] Faxed DC summary to [facility]. FX: [phone]. SOC 04/29. DCP- Discharge Planning Updated by [id number]: Le Jurado on 04/27/20 5:[address] CM called and faxed records to [facility] [phone] they will admit patient on Friday. CM spoke with John with [facility] [phone] and he stated for the patient call when discharged and they will deliver equipment to her home. CM will continue to follow and assist as needed with discharge planning / needs. DCP- Discharge Planning Updated by [id number]: Avelina Zuñiga on 04/26/20 4:[address] DC Plan: Home with [facility] ([phone]), PT, Nursing, aide. DME Kinex: 2 Wheeled walker, BSC, shower chair, CPM, Ice machine ([phone]). CM met with patient to discuss initial discharge planning. Patient is in agreement to proceed with the assessment. Patient reports that she lives at home alone, independently. Patient is alert/oriented, drowsy. Stairs/steps: 2 small steps. PCP: Dr. Abreu. [facility]. Patient states she has been able to obtain all of her prescribed medications. HHS: Patient's choice is [facility] for PT, Nursing, aide. DME: Bi-pap from [facility], Walker w/seat, Pain Med Pump. Patient gives permission to speak with family members. Emergency contact: Ana Ag (dtr) [phone]. 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 CM discussed the availability of HH, Rehab, SNF, OP Therapy, DME services. Patient refuses to consider Rehab. Patient feels safe returning to previous environment. Patient denies hospitalization within the past 30 days. 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 Transportation at time of discharge: Zita, (friend) [phone]. Coverage Notice Reviewer: [id number] - Avelina Zuñiga Notice Issued Date-Time: 04/26/2020 15:35 Notice Type: Patient Choice Letter Notice Delivered To: Patient Relationship to Patient: Self Childcare Center Administrator Name: Mary Cruz Delivery Method: HAND - Hand Delivered Afshan Days: Prior Verbal Notification: Recipient Understood Notice: Yes Recipient Signature: Yes Med Rec Note Co-signed by Attending: Coverage Notice Comment: Patient choice signed/given to patient, for [facility]. Original to patient copy to chart. Last DP export: 04/28/20 8:03 am Patient Name: MARY CRUZ Page [phone] at 0926 All edits/amendments must be made on the electronic document DICTATION DATE: 04/28/20925 CONCRETING SUPERVISOR: CHRISTIANO 04/28/20925 RPT#: [id number] DC DATE:04/27/20 STATUS: DIS IN [place] [place] [address] END OF REPORT
--- NOTE | 2020-04-28 11:45 | MORECARE ---
CASE MANAGEMENT DISCHARGE SUMMARY PATIENT: MARY CRUZ UNIT: [id number] ADM DATE: 04/25/20 AGE: 59 : 58 SEX: F ROOM/BED: D.1209 AUTHOR: MAGALI,DOC PHYSICIAN: REFERRING PHYSICIAN: DEB TEMPLETON DO DATE OF SERVICE: 04/28/20 Discharge Plan Patient Name: MARY CRUZ Facility: [facility]:[place] : 1960 Planned Disposition: Home Anticipated Discharge Date: 04/28/20 Discharge Date: 04/27/2020 Expected LOS: 3 Initial Reviewer: [email or web address] Initial Review Date: 04/25/2020 Generated: 04/28/20 12:44 pm Comments DCP- Discharge Planning Updated by [id number]: Avelina Zuñiga on 04/28/20 8:[address] Faxed DC summary to [facility]. FX: [phone]. SOC 04/29. DCP- Discharge Planning Updated by [email or web address]: Le Jurado on 04/27/20 5:[address] CM called and faxed records to [facility] [phone] they will admit patient on Friday. CM spoke with John with [facility] [phone] and he stated for the patient call when discharged and they will deliver equipment to her home. CM will continue to follow and assist as needed with discharge planning / needs. DCP- Discharge Planning Updated by [id number]: Avelina Zuñiga on 04/26/20 4:[address] DC Plan: Home with [facility] ([phone]), PT, Nursing, aide. DME Kinex: 2 Wheeled walker, BSC, shower chair, CPM, Ice machine ([phone]). CM met with patient to discuss initial discharge planning. Patient is in agreement to proceed with the assessment. Patient reports that she lives at home alone, independently. Patient is alert/oriented, drowsy. Stairs/steps: 2 small steps. PCP: Dr. Abreu. [facility]. Patient states she has been able to obtain all of her prescribed medications. HHS: Patient's choice is [facility] for PT, Nursing, aide. DME: Bi-pap from [facility], Walker w/seat, Pain Med Pump. Patient gives permission to speak with family members. Emergency contact: Ana Ag (dtr) [phone]. 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 CM discussed the availability of HH, Rehab, SNF, OP Therapy, DME services. Patient refuses to consider Rehab. Patient feels safe returning to previous environment. Patient denies hospitalization within the past 30 days. Patient denies the use of community resources VISUALIZER. Transportation at time of discharge: Zita, (friend) [phone]. External Providers External Provider: [facility] Next Contact Date: Service Request Date: Service Type: Resolution: Reviewer: Comments: Coverage Notice Reviewer: [id number] Esther Zuñiga Notice Issued Date-Time: 04/26/2020 15:35 Notice Type: Patient Choice Letter Notice Delivered To: Patient Relationship to Patient: Self Helium Arc Welder Name: Mary Cruz Delivery Method: HAND - Hand Delivered Afshan Days: Prior Verbal Notification: Recipient Understood Notice: Yes Recipient Signature: Yes Med Rec Note Co-signed by Attending: Coverage Notice Comment: Patient choice signed/given to patient, for [facility]. Original to patient copy to chart. Last DP export: 04/28/20 8:26 am Patient Name: MARY CRUZ Page [phone] at 1145 All edits/amendments must be made on the electronic document DICTATION DATE: 04/28/20 1144 HEAD CONCIERGE: CHRISTIANO 04/28/20 1144 RPT#: [id number] DC DATE:04/27/20 STATUS: DIS IN [facility] [address] [place] [address] END OF REPORT
--- NOTE | 2020-04-28 11:53 | MORECARE ---
CASE MANAGEMENT DISCHARGE SUMMARY PATIENT: MARY CRUZ UNIT: [id number] ADM DATE: 04/25/20 AGE: 59 : 58 SEX: F ROOM/BED: D.1209 AUTHOR: MAGALI,DOC PHYSICIAN: REFERRING PHYSICIAN: DEB TEMPLETON DO DATE OF SERVICE: 04/28/20 Discharge Plan Patient Name: MARY CRUZ Facility: [facility]:[place] : 1960 Planned Disposition: Home Anticipated Discharge Date: 04/28/20 Discharge Date: 04/27/2020 Expected LOS: 3 Initial Reviewer: [email or web address] Initial Review Date: 04/25/2020 Generated: 04/28/20 12:52 pm Comments DCP- Discharge Planning Updated by [id number]: Avelina Zuñiga on 04/28/20 10:[address] Faxed DC summary to [facility]. FX: [phone]. SOC 04/29. Faxed PT orders to [facility]. DCP- Discharge Planning Updated by [id number]: Le Jurado on 04/27/20 5:[address] CM called and faxed records to [facility] [phone] they will admit patient on Friday. CM spoke with John with [facility] [phone] and he stated for the patient call when discharged and they will deliver equipment to her home. CM will continue to follow and assist as needed with discharge planning / needs. DCP- Discharge Planning Updated by [id number]: Avelina Zuñiga on 04/26/20 4:[address] DC Plan: Home with Care [facility] ([phone]), PT, Nursing, aide. DME Kinex: 2 Wheeled walker, BSC, shower chair, CPM, Ice machine ([phone]). CM met with patient to discuss initial discharge planning. Patient is in agreement to proceed with the assessment. Patient reports that she lives at home alone, independently. Patient is alert/oriented, drowsy. Stairs/steps: 2 small steps. PCP: Dr. Abreu. [facility]. Patient states she has been able to obtain all of her prescribed medications. HHS: Patient's choice is [facility] for PT, Nursing, aide. DME: Bi-pap from [facility], Walker w/seat, Pain Med Pump. Patient gives permission to speak with family members. Emergency contact: Ana Ag (dtr) [phone]. 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 CM discussed the availability of HH, Rehab, SNF, OP Therapy, DME services. Patient refuses to consider Rehab. Patient feels safe returning to previous environment. Patient denies hospitalization within the past 30 days. 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 Transportation at time of discharge: Zita, (friend) [phone]. Coverage Notice Reviewer: [id number] Esther Zuñiga Notice Issued Date-Time: 04/26/2020 15:35 Notice Type: Patient Choice Letter Notice Delivered To: Patient Relationship to Patient: Self Reverse Unit Operator Fisherman Name: Mary Cruz Delivery Method: HAND - Hand Delivered Afshan Days: Prior Verbal Notification: Recipient Understood Notice: Yes Recipient Signature: Yes Med Rec Note Co-signed by Attending: Coverage Notice Comment: Patient choice signed/given to patient, for [facility]. Original to patient copy to chart. Last DP export: 04/28/20 10:44 am Patient Name: MARY CRUZ Page [phone] at 1153 All edits/amendments must be made on the electronic document DICTATION DATE: 04/28/20 1152 AZURE ARCHITECT: CHRISTIANO 04/28/20 1152 RPT#: [id number] DC DATE:04/27/20 STATUS: DIS IN [facility] [address] [place] [address] END OF REPORT
== END 2020-04-27 18:27 | disposition home health service (06) | DRG 470 ==
LOC: D.SDCHOLD 04-18 10:00 → D.M3 04-25 08:35 → D.SDCHOLD 04-25 10:00 → D.M3 04-25 13:29
PROVIDERS: Family Medicine; ADMIT Orthopaedic Surgery; ATTEND Orthopaedic Surgery
PROC: 0SRC0J9 Replacement of Right Knee Joint with Synthetic Substitute, Cemented, Open Approach (ICD-10-PCS; principal; 2020-04-25 10:30)
DX: M17.11 Unilateral primary osteoarthritis, right knee (principal); M21.061 Valgus deformity, not elsewhere classified, right knee; E11.9 Type 2 diabetes mellitus without complications; E03.9 Hypothyroidism, unspecified; F41.8 Other specified anxiety disorders; E11.40 Type 2 diabetes mellitus with diabetic neuropathy, unspecified; F17.200 Nicotine dependence, unspecified, uncomplicated; I05.9 Rheumatic mitral valve disease, unspecified

== ENCOUNTER 2020-04-27 23:15 | Emergency (ER) | payer MEDICARE, BC ==
[~2020-04-27] VITALS: Ht 165.1 cm; Wt 100.0 kg
[~2020-04-27 23:15] MED LIST changes: +BACLOFEN10 MG IV; +CIPRO500 MG PO; +ELIQUIS2.5 MG PO; +ULTRAM50 MG PO; +VISTARIL50 MG PO
[2020-04-27 23:25] VITALS: Ht 165.1 cm; Wt 100.0 kg
[2020-04-28 01:47] VITALS: BP 110/62
== END 2020-04-28 01:47 | disposition home or self-care (01) ==
LOC: D.ER 23:15
DX: G89.18 Other acute postprocedural pain (principal); M79.604 Pain in right leg; E11.40 Type 2 diabetes mellitus with diabetic neuropathy, unspecified; K21.9 Gastro-esophageal reflux disease without esophagitis; Z79.84 Long term (current) use of oral hypoglycemic drugs

== ENCOUNTER → 2020-05-02 21:24 | Outpatient (CLI) | payer MEDICARE, BC ==
[2020-04-27 23:25] VITALS: BMI 36.6
[2020-05-02 21:58] LABS: BILIRUBIN NEGATIVE (NEGATIVE); GLUCOSE NEGATIVE (NEGATIVE); KETONE NEGATIVE (NEGATIVE); NITRITE NEGATIVE (NEGATIVE); UROBILINOGEN NORMAL (NORMAL)
== END | disposition home or self-care (01) ==
LOC: D.LABREF 21:24
PROVIDERS: ATTEND Family Medicine
DX: N39.0 Urinary tract infection, site not specified (principal)

== ENCOUNTER → 2020-05-09 16:33 | Outpatient (CLI) | payer MEDICARE, BC ==
[2020-04-27 23:25] VITALS: BMI 36.6
== END | disposition home or self-care (01) ==
LOC: D.US 16:33
PROVIDERS: ATTEND Orthopaedic Surgery
DX: R22.41 Localized swelling, mass and lump, right lower limb (principal)

== ENCOUNTER 2020-05-11 14:29 | Inpatient (IN) | payer MEDICARE, BC ==
[~2020-05-11] VITALS: Ht 165.1 cm; Wt 104.3 kg
--- NOTE | 2020-05-11 15:00 | NUR ---
RECIEVED FROM HOME TO ROOM 1118A,HX S/P 04/25/18 RT TKA.ZIP TIES STILL IN PLACE.SEEN PER THREAD CUTTER TENDER 05/09/20 WITH MILD REDNESS TO LOWER RT LEG;TODAY REDNESS IS ALL THE WAY DOWN LEG FROM RT KNEE AND WARM TO TOUCH.HX OF US DONE TO R/O DVT 05/09/20.NOTIFIED KRYSTLE GILLIAM AND CONSULT PLACED.ORDERS RECIEVED.ORIENTED TO ROON AND SURROUNDINGS.CL IN REACH.
[2020-05-11 19:34] VITALS: BMI 38.3
--- NOTE | 2020-05-11 20:00 | NUR ---
AWAKE AND ALERT. RESTING IN BED WITH RESPIRATIONS UNLABORED. RIGHT KNEE INCISION EDGES APPROXIMATED ZIP TIES IN PLACE. NOTED REDNESS AND SWELLING/CELLULITIS IN RIGHT LEG. WAS SEEN BY SANTANA BLANCO TODAY AND ANTIBIOTIC ORDERED. NOTED REDNESS IN ABDOMINAL FOLDS. NYSTATIN ORDERED AND WILL BE ADMINISTERED AT HS. PAIN PUMP IN PLACE IN RIGHT ABDOMEN AREA. NO ACUTE DISTRESS NOTED. CALL LIGHT IN REACH.
[2020-05-11 20:18] VITALS: BP 119/65
--- NOTE | 2020-05-11 22:00 | NUR ---
SLEEPING WITH RESPIRATIONS UNLABORED. NO DISTRESS NOTED.
--- NOTE | 2020-05-12 | NUR ---
CONTIUES RESTING IN BED WITH RESPIRAITONS UNLABORED. NO DISTRESS NOTED.
--- NOTE | 2020-05-12 04:15 | NUR ---
RESTING IN BED AWAKE. RESPIRATIONS UNLABORED. NO DISTRESS NOTED.
--- NOTE | 2020-05-12 05:15 | NUR ---
EYES CLOSED. RESTING QUIETLY RESPIRATIONS UNLABORED.
[2020-05-12 07:12] LABS: HEMATOCRIT 30.2 % (36.0-48.0); HEMOGLOBIN 9.3 g/dL (12-16); MCH 29.2 pg (26.0-34.0); MCHC 30.8 g/dL (31.0-37.0); MCV 94.7 fL (80.0-100.0); MEAN PLATELET VOLUME 8.6 fL (7.4-10.4); RBC 3.19 10x6/uL (4.00-5.40); RDW 13.7 % (11.5-14.5); WBC 9.5 10x3/uL (4.8-10.8)
[2020-05-12 07:20] LABS: PLATELET COUNT 328 10x3/uL (130-400)
[2020-05-12 07:21] LABS: ANION GAP 6.9 mmol/L (8-16); CALCIUM 8.1 mg/dL (8.5-10.1); CARBON DIOXIDE 32.6 mmol/L (21.0-32.0); POTASSIUM - SERUM 4.5 mmol/L (3.5-5.1)
[2020-05-12 10:19] LABS: EOSINOPHILS 6 % (0-7); LYMPHOCYTES 20 % (15-50); MONOCYTES 13 % (2-11); NEUTROPHILS 60 % (40-80); PLATELET ESTIMATE NORMAL
[2020-05-12 13:31] VITALS: Ht 165.1 cm; Wt 104.3 kg
--- NOTE | 2020-05-12 15:11 | NUR ---
PATIENT ADMITTED TO REHAB FROM HOME. PATIENT IS A CLIENT OF [address] IS PATIENT PCP. DME AT HOME WALKER, BEDSIDE COMMODE, SHOWER CHAIR AND BI PAP. DISCHARGE PLANS ARE FOR PATIENT TO RETURN HOME.
[2020-05-12 22:05] VITALS: BP 135/70
--- NOTE | 2020-05-13 02:10 | NUR ---
DR TEMPLETON ORDERED VANCO Q12H PT HAD NO IV, 2 ATTEMPTS WERE MADE BY NURSE, FOLLOWED BY 2 ATTEMPTS BY ICU NURSE, FOLLOWED BY 2 ATTEMPTS MADE BY A 2ND ICU NURSE, ALL UNSUCCESSFUL PT VEINS KEPT BLOWING, ED WAS CALLED NO ONE WAS AVAILABLE AT THE TIME A SECOND CALL WAS [facility] ED NO ONE AVAILABLE, A CALL TO MANAGER CAREER WAS MADE, HOT PACKS WERE PLACED FOR AN HOUR, BRAIDED RUG MAKER WAS SUCCESSFUL, IV WAS PLACED AT 0100 IN RIGHT FOREARM, VANC RAN AT 125ML/HR OVER 2HR FOR FEAR OF BLOWING VEIN
--- NOTE | 2020-05-13 03:55 | NUR ---
PT UP TO TOILET, NO OTHER NEEDS NOTED, IV FLUIDS COMPLETE AT 0330, FLUIDS/CALL LIGHT WITHIN REACH
[2020-05-13 08:00] VITALS: BP 126/61
--- NOTE | 2020-05-13 10:39 | NUR ---
HAS BEEN UP WORKING WITH THERAPY. RLNinoska IS WRAPED IN [place] WRAP. SHE APPEARS LIKE SHE IS FIXING TO FALL ASLEEP ALL THE TIME.
--- NOTE | 2020-05-13 15:24 | NUR ---
LAYING DOWN IN BED. SHE STILL SEEMS SLEEPY ALL THE TIME. ASKS FOR THING DONE FOR HER THAT SHE CAN DO HERSELF. C/O PAIN TO RLE. IT IS RED AND WARM TO TOUCH. INCISION IS INTACT WITH STERI STRIPS IN PLACE. EDEMA TO WHOLE LEG NOTED.
[2020-05-13 15:28] LABS: ERYTHROCYTE SEDIMENTATION RATE 37 mm/hr (0-30)
[2020-05-13 20:16] VITALS: BP 106/53
--- NOTE | 2020-05-13 23:21 | NUR ---
PT UP WITH WALKER, TOILETED, NEEDS WAIVER SIGNED, FLUIDS/CALL LIGHT WITHIN REACH, CONTINUES TO GO OUT PT/OT DOOR AND PROP IT OPEN UNTIL READY TO GO IN, I HAVE NOT SEEN BUT BELIEVE PT IS SMOKING AND HAS A 21MG NICOTINE PATCH, ALSO MY BELIEF PT HAS BEEN SELF MEDICATING DUE TO EXCESSIVE DROWSINESS AND CHANGES IN LOC AT TIMES,
--- NOTE | 2020-05-14 02:35 | NUR ---
PT REQUESTING PAIN AND SLEEPING MEDS, BP-105/33 P-73, GIVING PRN TYLENOL ONLY, PT HAS 21MG NICOTINE PATCH HAS BEEN CAUGHT OUTSIDE APPROXIMATELY Q2H SINCE BEGINNING OF SHIFT,OUTSIDE 4 X'S SINCE BEGINNING OF SHIFT, NICOTINE PATCH HAS BEEN REMOVED DUE TO PT [employer] POLICY OF NO SMOKING AND CONTINUOUS WARNINGS OF SMOKING WITH NICOTINE PATCH ON
--- NOTE | 2020-05-14 03:19 | NUR ---
REMOVED IV FROM RFA, PREVIOUSLY TOLD VEIN HAD BLOWN, IV LOOKED TO HAVE INFILTRATED, RED/SWOLLEN/WARM TO TOUCH, PULLED IV CATHETER INTACT, WARM CLOTH APPLIED
[2020-05-14 08:29] LABS: HEMATOCRIT 32.3 % (36.0-48.0); HEMOGLOBIN 9.9 g/dL (12-16); LYMPHOCYTES 29.6 % (15-50); MCH 28.8 pg (26.0-34.0); MCHC 30.7 g/dL (31.0-37.0); MCV 93.9 fL (80.0-100.0); MEAN PLATELET VOLUME 7.8 fL (7.4-10.4); NEUTROPHILS 57.1 % (40-80); PLATELET COUNT 359 10x3/uL (130-400); RBC 3.44 10x6/uL (4.00-5.40); RDW 13.3 % (11.5-14.5); WBC 8.1 10x3/uL (4.8-10.8)
[2020-05-14 08:41] LABS: C-REACTIVE PROTEIN 2.4 mg/dL (0.0-0.9)
[2020-05-14 09:28] LABS: ERYTHROCYTE SEDIMENTATION RATE 28 mm/hr (0-30)
[2020-05-14 10:09] VITALS: BP 95/54
--- NOTE | 2020-05-14 11:31 | NUR ---
SITTING ON SIDE OF BED TALKING TO ROOM MATE. DR TEMPLETON WAS HERE EARLIER AND DONE RT KNEE ASPIRATION WITH CULTURES. HER KNEE IS STILL SWOLLEN, TENDER, WARM AND RED. INCISION INTACT WITH STERI STRIPS COVERING. SHE ASKS FOR PAIN MEDS OFTEN. SHE HAD LOW BP THIS AM AND PAIN MEDS HELD. NURSE TOLD PT WHEN BP CAME UP SHE COULD HAVE PAIN MEDS. PT STARTED WALKING HALLS THEN
--- NOTE | 2020-05-14 19:15 | NUR ---
PT SITTING UP ON SIDE OF BED. ALERT AND ORIENTED. REQUEST WATER AND RECIEVED. COMPLAINS OF PAIN AND TO BRING IT WITH SCHEDULED MEDICATIONS IF IT IS TIME. NO OTHER NEEDS OR CONCERNS NOTED. CALL LIGHT IN REACH. WILL CONTINUE TO OBSERVE.
[2020-05-14 20:00] VITALS: BP 106/67
--- NOTE | 2020-05-15 00:54 | NUR ---
PT UP TO BATHRROM. NO DIFFICULTY NOTED. CALL LIGHT IN REACH. WILL CONTINUE TO OBSERVE.
--- NOTE | 2020-05-15 02:54 | NUR ---
PT IN BED WITH EYES CLOSED AND CHEST RISING. NO S/S OF DISTRESS. CALL LIGHT IN REACH. WILL CONTINUE TO OBSERVE.
--- NOTE | 2020-05-15 05:16 | NUR ---
PT STATES SHE SHOWERED YESTERDAY, WASHING HAIR AND DID NOT WANT TO TAKE SHOWER THIS MORNING.
[2020-05-15 08:00] VITALS: BP 103/47
[2020-05-15 08:14] LABS: ANION GAP 9.4 mmol/L (8-16); CALCIUM 8.2 mg/dL (8.5-10.1); CARBON DIOXIDE 35.8 mmol/L (21.0-32.0); CREATININE - SERUM 1.1 mg/dL (0.6-1.3); POTASSIUM - SERUM 4.2 mmol/L (3.5-5.1)
[2020-05-15 08:30] LABS: HEMATOCRIT 32.2 % (36.0-48.0); HEMOGLOBIN 10.1 g/dL (12-16); LYMPHOCYTES 30.5 % (15-50); MCH 29.4 pg (26.0-34.0); MCHC 31.4 g/dL (31.0-37.0); MCV 93.9 fL (80.0-100.0); MEAN PLATELET VOLUME 8.4 fL (7.4-10.4); NEUTROPHILS 54.3 % (40-80); PLATELET COUNT 354 10x3/uL (130-400); RBC 3.43 10x6/uL (4.00-5.40); RDW 13.2 % (11.5-14.5); WBC 7.3 10x3/uL (4.8-10.8)
--- NOTE | 2020-05-15 12:41 | NUR ---
VASCULAR NURSE PLACED A MIDLINE IN RUE THIS MORNING. IV ABX RESTARTED AND ZYVOX ABX DC/D. RLE IS STILL VERY SWOLLEN, RED AND WARM. INCISION INTACT ON KNEE. SHE IS SLEEPY ALL THE TIME AND ASKING FOR PAIN MEDS. SHE GETS UP AND WALKS WITH HER OWN WALKER.
--- NOTE | 2020-05-15 13:49 | NUR ---
Nutrition Follow-up: Diet: Diabetic PO intake: ~82% average x last 4 meals Last BM: 05/11/20. Wt: 230# (05/12/20) Meds noted: lasix, metformin, glipizide, mirco-K. Labs noted: Glu 116(H) Recommend continue current diet. RD following.
--- NOTE | 2020-05-15 19:54 | NUR ---
AWAKE AND ALERT. RESTING IN BED WITH RESPIRATIONS UNLABORED. RIGHT KNEE INCISION HEALING. LOWER LEG RED AND SWOLLEN. RIGHT AC MIDLINE INTACT. NO ACUTE DISTRESS NOTED. CALL LIGHT IN REACH.
[2020-05-15 21:53] VITALS: BP 127/66
--- NOTE | 2020-05-16 02:31 | NUR ---
SLEEPING WITH NO DISTRESS NOTED.
--- NOTE | 2020-05-16 05:08 | NUR ---
QUIET HOURS. NO ACUTE CHANGES IN CONDITION THIS SHIFT. RESTING IN BED WITH NO DISTRESS NOTED. RIGHT ARM MIDLINE SALINE LOCK INTACT.
--- NOTE | 2020-05-16 07:20 | NUR ---
A/A/OX4. DENIES ANY PAIN AT THIS TIME. INCISION RIGHT KNEE C/D/I HEALING WELL. STILL SOME REDNESS AND SWELLING. SITTING UP ON SIDE OF BED WITH NO REQUESTS VOICED. MIDLINE IV RIGHT ARM WITHOUT REDNESS OR EDEMA. SIDERAILS UP X 2, CALL LIGHT IN REACH AND BED IN LOW, LOCKED POSITION. WILL CPOC
--- NOTE | 2020-05-16 07:22 | NUR ---
A/A/OX4. SITTING UP ON SIDE OF BED WITH NO REQUESTS VOICED AND NO C/O ANY PAIN. INCISION RIGHT KNEE C/D/I HEALING WELL; STILL SOME REDNESS AND EDEMA. RIGHT MIDLINE IV PATENT WITHOUT REDNESS OR EDEMA AT SITE. SIDERAILS UP X 2, CALL LIGHT IN REACH AND BED IN LOW LOCKED POSITION. WILL CPOC
[2020-05-16 08:00] VITALS: BP 120/60
--- NOTE | 2020-05-16 12:00 | NUR ---
I have reviewed this patient and I concur with the Shift Assessment completed by the Licensed Practical Nurse today this shift.
--- NOTE | 2020-05-16 19:53 | NUR ---
AWAKE AND ALERT. SITTING ON SIDE OF BED. RESPIRATIONS UNLABORED. RIGHT ARM MIDLINE INTACT. NO ACUTE DISTRESS NOTED. CALL LIGHT IN REACH.
[2020-05-16 21:16] VITALS: BP 131/72
--- NOTE | 2020-05-17 02:08 | NUR ---
SLEEPING WITH RESPIRAITONS UNLABORED. NO DISTRESS NOTED. CALL LIGHT IN REACH
--- NOTE | 2020-05-17 05:16 | NUR ---
RESTING IN BED. RESPIRATIONS UNLABORED. HAS BEEN UP AND DOWN FREQUENTLY TONIGHT. RIGHT ARM MIDLINE SALINE LOCKED . CONTINUES TO HAVE SOME REDNESS IN RIGHT LOWER LEG. LOTION APPLIED PER REQUEST.
--- NOTE | 2020-05-17 07:30 | NUR ---
RESTING QUIETLY IN BED,AWAKE.ASSESSMENT COMPLETED.WANTS PAIN MED WITH AM MEDS.WILL CONTINUE WITH CURRENT PLAN OF CARE.CL IN EASY REACH,BED IN LOW POSITION.
[2020-05-17 08:00] VITALS: BP 114/45
[2020-05-17 08:47] LABS: ANION GAP 5.6 mmol/L (8-16); CALCIUM 8.7 mg/dL (8.5-10.1); CARBON DIOXIDE 36.2 mmol/L (21.0-32.0); POTASSIUM - SERUM 3.8 mmol/L (3.5-5.1)
[2020-05-17 09:24] LABS: BASOPHILS 0.3 % (0-2); EOSINOPHILS 7.8 % (0-7); HEMATOCRIT 34.5 % (36.0-48.0); HEMOGLOBIN 10.6 g/dL (12-16); IMMATURE GRANULOCYTES 0.8 % (0-5); LYMPHOCYTES 32.1 % (15-50); MCHC 30.7 g/dL (31.0-37.0); MCV 94.5 fL (80.0-100.0); MEAN PLATELET VOLUME 8.8 fL (7.4-10.4); MONOCYTES 7.5 % (2-11); NEUTROPHILS 51.5 % (40-80); PLATELET COUNT 302 10x3/uL (130-400); RBC 3.65 10x6/uL (4.00-5.40); RDW 13.6 % (11.5-14.5); WBC 7.3 10x3/uL (4.8-10.8)
[2020-05-17] MEDS ORDERED: LASIX40 MG PO (12:27)
[2020-05-17] MEDS ORDERED: ZYVOX600 MG PO (12:28)
[2020-05-17] MEDS ORDERED: GLUCOPHAGE500 MG PO (12:28)
[2020-05-17] MEDS ORDERED: K-TAB10 MEQ PO (12:29)
--- NOTE | 2020-05-17 16:00 | NUR ---
RIGHT GREAT TOE HAS A SCABBED AREA AROUND THE CUTICLE. PT STATES SHE DROPPED A COFFEE CUP ON HER TOE THE MORNING OF THE SAME DAY SHE WAS ADMITTED TO REHAB. NO DRAINAGE OR ODOR NOTED. RECOMMENDED ANTIBIOTIC OINTMENT BE APPLIED DAILY. WOUND CARE WILL MONITOR.
--- NOTE | 2020-05-17 16:34 | NUR ---
CARE TEAM MEETING: PATIENT IS DISCHARGING HOME IN AM. WILL CONTINUE TO FOLLOW WITH PATIENT.
--- NOTE | 2020-05-17 19:44 | NUR ---
PT AWAKE, NO NEEDS NOTED, WAIVER IN CHART, FLUIDS/CALL LIGHT WITHIN REACH
[2020-05-17 20:59] VITALS: BP 97/46
--- NOTE | 2020-05-18 01:19 | NUR ---
PT ASLEEP, NO NEEDS NOTED, FLUIDS/CALL LIGHT WITHIN REACH
--- NOTE | 2020-05-18 06:25 | NUR ---
PT UP TO RESTROOM. DENIES ANY NEEDS OR PAIN. NO SIGNS OF ACUTE DISTRESS NOTED. CPOC
[2020-05-18] MEDS ORDERED: CIPRO500 MG PO (07:39)
[2020-05-18 08:00] VITALS: BP 98/65
--- NOTE | 2020-05-18 10:47 | NUR ---
PATIENT DISCHARGING HOME TODAY WITH FAMILY. [facility] WILL RESUME THERAPY AT HOME. NO COMPARE DATA REVIEWED PATIENT IS A CLIENT OF [facility] AND WISHES TO CONTINUE WITH THEIR SERVICE. IMM SERVED AND EXPLAINED, ONE GIVEN TO PATIENT AND ONE FILED IN CHART. NO NEW DME NEEDED AT THIS TIME. DR. BUI 05/22/20 @ 2:45, DR. TEMPLETON/DEVIN GILLIAM 05/24/20 @ 10:20. DISCHARGE INSTRUCTIONS FAXED TO PCP, HOME HEALTH AND REVIEWED WITH PATIENT PER PRIMARY NURSE.
--- NOTE | 2020-05-18 11:00 | NUR ---
MIDLINE IV DC'D. APPLIED DIRECT PRESSURE FOR 13 MINUTES TO RUE IV SITE. NO BLEEDING NOTED. APPLIED OPSITE AND FOLDED 2X2 OVER IV INSERTION SITE.
--- NOTE | 2020-05-18 13:00 | NUR ---
DC HOME WITH ALL PERSONAL BELONGINGS. MEDS CALLED INTO PHARMACY, WHO CALLED BACK AND SAID ZYVOX PO WAS NOT COVERED UNDER HER INSURANCE WITH OUT PRE AUTHORIZATION. THIS NURSE CALLED DR TEMPLETON'S OFFICE AND SPOKE WITH HARVEY ABOUT [place] PRE AUTHORIZATION ON ZYVOX AND SHE WILL HANDLE THAT..... EXPLAINED TO PATIENT ABOUT PRE AUTHORIZATION
--- NOTE | 2020-05-19 12:25 | RHP ---
PATIENT: VAL MCINTYRE MEDICAL RECORD: [id number] ACCOUNT: [id number] LOCATION:[id number] : [id number] ADMISSION DATE: 05/11/20 REHABILITATION HISTORY AND PHYSICAL EXAMINATION POST ADMISSION PHYSICIAN EXAMINATION ADMITTING DIAGNOSES: Lower extremity joint replacement with right total knee after failed home therapy. HISTORY OF PRESENT ILLNESS: The patient is a 59-year-old morbidly obese female who had a right total knee done by Dr. Hurst on 04/25/2020. Postop, she developed a fever with a T-max of 100 degrees and some hypotension. She had anemia, some electrolyte abnormalities. The patient does have a history of type 2 diabetes with neuropathy affecting both sides of her body and obstructive sleep apnea, bipolar disorder, depression, anxiety, obsessive compulsive disorder. She opted to discharge home on 04/27/2020 with home health. She returned to the OR later with increased pain in her right knee. X-rays were done. There were no acute findings. She returned to Dr. Hurst on 05/10/2020, states she was unable to care for herself. She has a history of falls. Previously, she was independent with ADLs and mobility. She is also complaining of increased pain, fatigue, weakness, unsteady gait. She is having difficulty ambulating to the bathroom for any type of meals. She would like to get back to her prior level of functioning prior to her joint replacement. COMORBIDITIES: Include anxiety, arthritis, bipolar disorder, decreased mobility, decrease in physical functioning, falls, hyperglycemia, hypotension and fatigue. PAST MEDICAL HISTORY: Significant for neuropathy. She has had a history of dystonia. She got a history of diabetes, hypotension, chronic use of CPAP and BiPAP at home, acid reflux, constipation, osteoarthritis. PAST SURGICAL HISTORY: Includes hysterectomy, she has had 4 back surgeries, spinal stimulator placed, pain pump, gallbladder surgery and septoplasty. ALLERGIES: MORPHINE, SULFA, ABILIFY, AUGMENTIN, FENTANYL, OXYCODONE AND TIZANIDINE. CURRENT MEDICATIONS: Include Prozac 40 mg she takes it every 48 hours, Pravachol 40 mg daily, she is on potassium 10 mEq daily, Tylenol 650 every 4 hours p.r.n., Protonix 40 mg daily, Nystatin powder to apply t.i.d., Eliquis 2.5 mg b.i.d., Desyrel 100 mg at bedtime, she is on Glucotrol 2.5 mg b.i.d., metformin 500 mg b.i.d. She is on Xylocaine with Rocephin injection now at this time for a total of 3 dosages, MiraLax 17 grams in 8 ounces of water daily, hydroxyzine 50 mg every 4 hours p.r.n., Ultram 50 mg every 6 hours p.r.n. and Klonopin 0.5 mg t.i.d. p.r.n. HABITS: No alcohol or tobacco use. FAMILY HISTORY: Noncontributory. SOCIAL HISTORY: The patient hopes to return back home and get back to her prior level of functioning. REVIEW OF SYSTEMS: HISTORY AND PHYSICAL [id number] VAL MCINTYRE GENERAL: Does complain of weakness and fatigue. HEENT: Denies cold, cough, or congestion. CARDIOVASCULAR: Denies any chest pain. PHYSICAL EXAMINATION: VITAL SIGNS: Stable, afebrile. GENERAL: A morbidly obese female, in no distress upon exam. HEENT: Normocephalic and atraumatic. Mucosa moist. NECK: Supple. No lymphadenopathy. LUNGS: Clear in upper zuniga. No wheezing, rhonchi or rales. HEART: Regular rate and rhythm. No murmurs, rubs or gallops. ABDOMEN: Soft, benign, and nondistended, noted to be obese. EXTREMITIES: Does have redness to her right lower extremity and swelling. NEUROLOGIC: She does have proximal muscle weakness. LABORATORY DATA: White count is 9.5, H&H of 9.3 and 30.2 and platelet count was noted be 328. Her sodium is 139, potassium 4.5, BUN and creatinine of 13 and 1.0. Blood sugar is noted to be 97. ASSESSMENT: This is a 59-year-old female patient admitted to the rehab with a working diagnosis of failed outpatient therapy for a total knee replacement. The patient has potential to make improvement. We instituted the following multidisciplinary therapies including, but not limited to physical, occupational, respiratory, speech, nutritional services, prosthetics and orthotics. Given her complex medical condition and risks for more complications, rehabilitation services cannot be provided at a low level of care such as fdc facility. PLAN: 1. Admit to [facility] for inpatient therapy to include the following disciplines; A. Physical therapy to improve gait, all transfer skills and bed mobility to a modified independent level. B. Occupational therapy to improve activities of daily living. C. Case management to help with discharge planning and placement options. D. Nutrition to assist with nutritional needs. E. Rehabilitation nursing to assist in monitoring the patient's underlying medical conditions and to assist with any type of bowel or bladder management. 2. The patient's current medication and medical care will be continued. 3. The patient will be placed on standard fall precautions. 4. The patient's estimated length of stay is approximately 7-10 days. 5. We will discuss this patient during care team staff meeting this week and I will see again in the a.m. TRANSINT:[id number] Voice Confirmation ID: [id number] DOCUMENT ID: [id number] CONNIE notes whether there has been none or any medical/functional change since admission: - No change since prescreen. CONNIE attests patient continues to be appropriate for IRF: - Continues to be appropriate. HISTORY AND PHYSICAL [id number] VAL MCINTYRE,GOLDIE DE LA ROSA MD at 1225 CC: [id number] DICTATION DATE: 05/12/20 08 RUG REPAIRER: 05/12/20 1004 DIS IN 05/18/20 [id number] [place] [address]
== END 2020-05-18 13:15 | disposition home health service (06) | DRG 949 ==
LOC: D.REHAB 14:29
PROVIDERS: Orthopaedic Surgery; ADMIT Emergency Medicine; ATTEND Emergency Medicine
PROC: 05HY33Z Insertion of Infusion Device into Upper Vein, Percutaneous Approach (ICD-10-PCS; principal; 2020-05-15)
DX: T84.84XD Pain due to internal orthopedic prosthetic devices, implants and grafts, subsequent encounter (principal); L03.115 Cellulitis of right lower limb; Z96.651 Presence of right artificial knee joint; F41.9 Anxiety disorder, unspecified; M19.90 Unspecified osteoarthritis, unspecified site; F31.9 Bipolar disorder, unspecified; I95.9 Hypotension, unspecified; R53.83 Other fatigue; R53.81 Other malaise; D64.9 Anemia, unspecified; E11.40 Type 2 diabetes mellitus with diabetic neuropathy, unspecified; E66.01 Morbid (severe) obesity due to excess calories; E03.9 Hypothyroidism, unspecified; R32 Unspecified urinary incontinence; M47.892 Other spondylosis, cervical region; G24.9 Dystonia, unspecified; F42.9 Obsessive-compulsive disorder, unspecified; M81.0 Age-related osteoporosis without current pathological fracture; F17.200 Nicotine dependence, unspecified, uncomplicated; E11.65 Type 2 diabetes mellitus with hyperglycemia

== ENCOUNTER → 2020-05-24 13:16 | Outpatient (CLI) | payer MEDICARE, BC ==
[2020-05-12 13:31] VITALS: BMI 38.2
[~2020-05-24 13:16] MED LIST changes: +LASIX40 MG PO; +ZYVOX600 MG PO
[2020-05-24 14:50] LABS: BASOPHILS 0.3 % (0-2); EOSINOPHILS 9.4 % (0-7); HEMATOCRIT 36.1 % (36.0-48.0); HEMOGLOBIN 11.4 g/dL (12-16); IMMATURE GRANULOCYTES 0.1 % (0-5); LYMPHOCYTES 28.4 % (15-50); MCH 29.5 pg (26.0-34.0); MCHC 31.6 g/dL (31.0-37.0); MCV 93.5 fL (80.0-100.0); MEAN PLATELET VOLUME 9.4 fL (7.4-10.4); MONOCYTES 6.1 % (2-11); NEUTROPHILS 55.7 % (40-80); PLATELET COUNT 232 10x3/uL (130-400); RBC 3.86 10x6/uL (4.00-5.40); RDW 13.8 % (11.5-14.5); WBC 7.9 10x3/uL (4.8-10.8)
[2020-05-24 15:53] LABS: ERYTHROCYTE SEDIMENTATION RATE 22 mm/hr (0-30)
== END | disposition home or self-care (01) ==
LOC: D.LABREF 13:16
PROVIDERS: ATTEND Nurse Practitioner Family
DX: M25.561 Pain in right knee (principal)

== ENCOUNTER 2020-05-28 02:24 | Emergency (ER) | payer MEDICARE, BC ==
[~2020-05-28] VITALS: Ht 165.1 cm; Wt 107.7 kg
[2020-05-28 02:30] VITALS: BP 101/53; Ht 165.1 cm; Wt 107.7 kg
== END 2020-05-28 03:24 | disposition home or self-care (01) ==
LOC: D.ER 02:24
DX: G89.18 Other acute postprocedural pain (principal); M25.561 Pain in right knee; Z96.651 Presence of right artificial knee joint; E11.40 Type 2 diabetes mellitus with diabetic neuropathy, unspecified; K21.9 Gastro-esophageal reflux disease without esophagitis; Z79.84 Long term (current) use of oral hypoglycemic drugs

== ENCOUNTER 2021-01-19 08:00 | Outpatient (CLI) | payer MEDICARE, BC ==
[2020-12-15 22:41] VITALS: BMI 41.0
[~2021-01-19 08:00] MED LIST changes: +HYDROMORPHONE; +REXULTI1 MG PO; +TYLENOL W/CODEI1 TAB PO
[2021-01-19 12:23] LABS: BASOPHILS 0.1 % (0-2); HEMATOCRIT 38.1 % (36.0-48.0); HEMOGLOBIN 12.4 g/dL (12-16); IMMATURE GRANULOCYTES 0.3 % (0-5); LYMPHOCYTE ABS# 2.18 10x3/uL (1.18-3.74); LYMPHOCYTES 24.3 % (15-50); MCHC 32.5 g/dL (31.0-37.0); MONOCYTES 4.5 % (2-11); NEUTROPHIL ABS# 5.89 10x3/uL (1.56-6.13); NEUTROPHILS 65.8 % (40-80); PLATELET COUNT 236 10x3/uL (130-400); RBC 4.14 10x6/uL (4.00-5.40); RDW 13.4 % (11.5-14.5)
[2021-01-19 12:25] LABS: BILIRUBIN NEGATIVE (NEGATIVE); KETONE NEGATIVE (NEGATIVE); NITRITE NEGATIVE (NEGATIVE); UROBILINOGEN NORMAL mg/dL (< 2)
[2021-01-19 12:26] LABS: BACTERIA FEW HPF (NONE SEEN); SQUAMOUS EPITHELIAL 0-5 HPF (0-4); WHITE CELLS - URINE 0-5 HPF (0-4)
[2021-01-19 12:34] LABS: CALC OSMOLALITY 277 mosm/kg (275-300); CALCIUM 8.6 mg/dL (8.5-10.1); CARBON DIOXIDE 33.7 mmol/L (21.0-32.0); CHLORIDE - SERUM 101 mmol/L (98-107); CREATININE - SERUM 0.8 mg/dL (0.6-1.3); GLUCOSE 116 mg/dL (74-106); POTASSIUM - SERUM 3.8 mmol/L (3.5-5.1); SODIUM 138 mmol/L (136-145); UREA NITROGEN 15 mg/dL (7-18); eGFR NON AFRICAN AMERICAN 77 mL/min (90-120)
--- NOTE | 2021-01-19 12:48 | NUR ---
BLISTER ON LEFT FOOT DIME SIZE, PT STATES SHE POPPED BLISSTER DR. TEMPLETON NOTIFIED, ORDERS TO CANCEL SURGERY INSTRUCTED TO SEE PRIMARY CARE PHYSICIAN BANDAGED WITH TELFA AND OP SITE
[2021-01-19 12:57] LABS: APTT 27.9 SECONDS (22.8-39.4); INR 1.01 (0.85-1.17); PROTIME 12.3 SECONDS (11.6-15.0)
== END 2021-01-19 08:01 | disposition home or self-care (01) ==
LOC: D.PAN 08:00 → D.OPS 01-23 11:00 → EDSTATUS 01-23 13:45 → D.OPS 01-23 14:55
PROVIDERS: ATTEND Orthopaedic Surgery
DX: M17.12 Unilateral primary osteoarthritis, left knee (principal)

== ENCOUNTER → 2021-04-11 19:01 | Outpatient (CLI) | payer MEDICARE, BC ==
[2020-12-15 22:41] VITALS: BMI 41.0
[2021-04-11 19:25] LABS: BASOPHILS 0.7 % (0-2); EOSINOPHILS 4.7 % (0-7); HEMATOCRIT 37.8 % (36.0-48.0); HEMOGLOBIN 12.6 g/dL (12-16); LYMPHOCYTES 18.5 % (15-50); MCH 29.8 pg (26.0-34.0); MCHC 33.3 g/dL (31.0-37.0); MCV 89.6 fL (80.0-100.0); MEAN PLATELET VOLUME 8.6 fL (7.4-10.4); MONOCYTES 5.6 % (2-11); NEUTROPHILS 70.5 % (40-80); RBC 4.22 10x6/uL (4.00-5.40); RDW 13.9 % (11.5-14.5); WBC 10.2 10x3/uL (4.8-10.8)
[2021-04-11 19:42] LABS: PLATELET COUNT 289 10x3/uL (130-400)
[2021-04-11 20:28] LABS: ERYTHROCYTE SEDIMENTATION RATE 15 mm/hr (0-30)
== END | disposition home or self-care (01) ==
LOC: D.LABREF 19:01
PROVIDERS: ATTEND Clinical Nurse Specialist Family Health
DX: M25.561 Pain in right knee (principal)

== ENCOUNTER → 2021-04-11 19:38 | Outpatient (CLI) | payer MEDICARE, BC ==
[2020-12-15 22:41] VITALS: BMI 41.0
== END | disposition home or self-care (01) ==
LOC: D.LABREF 19:38
PROVIDERS: ATTEND Clinical Nurse Specialist Family Health
DX: M25.561 Pain in right knee (principal)